=== PATIENT | male | born 1980 | race Hispanic/Latino ===

== ENCOUNTER 2023-09-16 21:33 | Inpatient (IN) | payer OTHER ==
[2023-09-16 22:10] LABS: BASOPHILS # (AUTO) 0.08 K/uL (0.00-0.20); BASOPHILS % (AUTO) 0.5 % (0.0-5.0); EOSINOPHILS # (AUTO) 0.02 K/uL (0.00-0.70); EOSINOPHILS % (AUTO) 0.1 % (0.0-8.0); HEMATOCRIT 53.5 % (42-54); IMMATURE GRANULOCYTE ABSOLUTE 0.12 K/uL (0-1); LYMPHOCYTES # (AUTO) 1.3 K/uL (1.0-4.8); LYMPHOCYTES % (AUTO) 8.6 % (21.0-51.0); MEAN CORPUSCULAR HEMOGLOBIN 31.6 pg (27.0-33.0); MEAN CORPUSCULAR HGB CONC 33.1 g/dL (32.0-36.0); MEAN CORPUSCULAR VOLUME 95.4 fL (79-99); MONOCYTES % (AUTO) 6.9 % (3.0-13.0); NEUTROPHILS # (AUTO) 12.4 K/uL (1.8-7.7); NEUTROPHILS % (AUTO) 83.1 % (40.0-77.0); PLATELET COUNT (AUTO) 320 K/uL (130-400); RED BLOOD CELL COUNT(AUTO) 5.61 MIL/uL (4.50-6.20)
[2023-09-16] MEDS: PANTOPRAZOLE 40 MG/VIAL IVP ONE ×2 (22:14→22:30)
[2023-09-16 22:29] LABS: ALBUMIN 3.9 g/dL (3.5-5.0); BILIRUBIN,TOTAL 0.5 mg/dL (0.2-1.0); POTASSIUM 3.8 mmol/L (3.5-5.1)
[2023-09-16] MEDS: LACTATED RINGERS 1000ML 1,000 ML IV ONE (22:30)
[2023-09-16] MEDS: LIDOCAINE HCL 2% VISCOUS 15 ML UDCUP PO ONE (22:30)
[2023-09-16] MEDS: ONDANSETRON 4MG INJ IVP ONE (22:30)
[2023-09-16] MEDS: MAG/ALUM/SIMETH 30 ML UDCUP PO ONE (22:30)
[2023-09-16 23:11] LABS: WBC MORPHOLOGY CONSISTENT W/DIFF
[2023-09-17] VITALS (81 sets, daily range): BP systolic 90–126; BP diastolic 45–78; PULSE 84–103; RESP 10–47; O2SAT 100
[2023-09-17 00:18] LABS: ABG HCO3 4.8 mmol/L (21.0-28.0); ABG OXYGEN SATURATION 97.6 % (95.0-99.0); ABG PCO2 < 15 mmHg (35-48); ABG PH 7.129 (7.35-7.450); DEVICE COMMENT RR RN; VENT MODE, BG RA (ROOM AIR)
[2023-09-17 00:55] LABS: AMPHET/METH SCREEN,URINE NEGATIVE (NEGATIVE); BARBITURATE SCREEN, URINE NEGATIVE (NEGATIVE); BENZODIAZEPINES SCREEN,URINE NEGATIVE (NEGATIVE); CANNABINOID SCREEN,URINE NEGATIVE (NEGATIVE); COCAINE SCREEN,URINE POSITIVE (NEGATIVE); OPIATE SCREEN,URINE NEGATIVE (NEGATIVE); PHENCYCLIDINE SCREEN,URINE NEGATIVE (NEGATIVE)
[2023-09-17 01:00] LABS: POTASSIUM 4.2 mmol/L (3.5-5.1)
[2023-09-17] MEDS ORDERED: MAGNESIUM 2GM PREMIX 50ML 50 ML IV SCH (01:00)
[2023-09-17] MEDS ORDERED: POTASSIUM CHLORIDE 10MEQ/100ML 100 ML IV PRN (01:00)
[2023-09-17] MEDS: INSULIN HUMULIN R 100 UNIT/ML 3ML SQ SCH (01:13)
[2023-09-17] MEDS: INSULIN REGULAR, HUMAN 3ML 100 UNIT in 0.9%NACL 100ML 100 ML IV SCH ×2 (01:52→14:58)
[2023-09-17] MEDS: D5W-1/2 NS/20MEQ KCL 1,000 ML IV SCH ×2 (01:53→22:06)
[2023-09-17] MEDS: INSULIN HUMULIN R 100 UNIT/ML 3ML ONE (02:21)
[2023-09-17] MEDS ORDERED: ACETAMINOPHEN 325 MG TAB PO PRN ×2 (02:30)
[2023-09-17] MEDS ORDERED: ONDANSETRON 4MG INJ IVP PRN (02:30)
[2023-09-17] MEDS: MORPHINE 2 MG SYG IVP PRN (03:03)
[2023-09-17] MEDS: NS-20 MEQ KCL 1000ML 1,000 ML IV ONE (03:47)
[2023-09-17] MEDS: 0.9%NACL 1000ML 1,000 ML IV SCH (04:00)
[2023-09-17 05:18] LABS: CREATININE 0.9 mg/dL (0.5-1.3); POTASSIUM 4.6 mmol/L (3.5-5.1)
[2023-09-17 05:39] LABS: APPEARANCE,URINE CLEAR (CLEAR); BACTERIA,URINE RARE /HPF (None Seen); BILIRUBIN,URINE NEGATIVE (NEGATIVE); COLOR,URINE COLORLESS (YELLOW); GLUCOSE, URINE (UA) >=1000 mg/dL (NEGATIVE); KETONES,URINE 150 mg/dL (NEGATIVE); LEUKOCYTE ESTERASE ,URINE NEGATIVE Leu/uL (NEGATIVE); MUCUS,URINE RARE LPF (None Seen); NITRATE,URINE NEGATIVE (NEGATIVE); OCCULT BLOOD,URINE SMALL (NEGATIVE); PH,URINE 5.5 (5.0-8.0); PROTEIN,URINE 70 mg/dL (NEGATIVE); SQUAMOUS EPITHELIAL CELL,UR RARE /HPF (0-2); UROBILINOGEN,URINE 0.2 mg/dL (0.2-1.0); YEAST,URINE BUDDING RARE /HPF (None Seen)
[2023-09-17] MEDS ORDERED: INSULIN GLARGINE 100 UNITS/ML 10 ML VIAL SQ SCH (07:30)
[2023-09-17] MEDS ORDERED: 0.9%NACL 50ML IV SCH (10:00)
[2023-09-17] MEDS ORDERED: ZOSYN 3.375GM +NS 50ML IVPB SCH (10:00)
[2023-09-17 10:05] LABS: CREATININE 0.9 mg/dL (0.5-1.3); POTASSIUM 3.5 mmol/L (3.5-5.1)
[2023-09-17] MEDS: CEFTRIAXONE 2GM VIAL IVPB SCH (10:37)
[2023-09-17 15:21] LABS: CREATININE 0.9 mg/dL (0.5-1.3)
[2023-09-17 15:31] LABS: POTASSIUM 2.7 mmol/L (3.5-5.1)
[2023-09-17] MEDS ORDERED: POTASSIUM CHLORIDE 10% ELIXIR 20 MEQ/15 ML UDCUP PO PRN (16:00)
[2023-09-17] MEDS ORDERED: LIRA0.6P SQ (16:09)
[2023-09-17] MEDS ORDERED: NPH,100V11 SQ (16:09)
[2023-09-17] MEDS: POTASSIUM CHLORIDE 10MEQ/100ML 100 ML IV PRN (16:14)
[2023-09-17] MEDS: POTASSIUM CHLORIDE 10% ELIXIR 20 MEQ/15 ML UDCUP ONE (16:21)
[2023-09-17] MEDS: KCL 20 MEQ ERTAB PO PRN (18:19)
[2023-09-17 18:49] LABS: CREATININE 0.8 mg/dL (0.5-1.3); MAGNESIUM 1.7 mg/dL (1.80-2.40); POTASSIUM 3.1 mmol/L (3.5-5.1)
[2023-09-17] MEDS: MAGNESIUM 2GM PREMIX 50ML 50 ML IV SCH (19:19)
[2023-09-17] MEDS: ENOXAPARIN SODIUM 40 MG/0.4 ML SYRINGE SQ SCH (21:07)
[2023-09-17 23:10] LABS: CREATININE 0.9 mg/dL (0.5-1.3); MAGNESIUM 2.1 mg/dL (1.80-2.40); POTASSIUM 3.7 mmol/L (3.5-5.1)
[2023-09-17] MEDS: INSULIN GLARGINE 100 UNITS/ML 10 ML VIAL SQ SCH (23:51)
[2023-09-18] VITALS (28 sets, daily range): BP systolic 100–124; BP diastolic 50–78; PULSE 72–90; RESP 10–20; O2SAT 100
[2023-09-18 04:09] LABS: BASOPHILS # (AUTO) 0.02 K/uL (0.00-0.20); BASOPHILS % (AUTO) 0.3 % (0.0-5.0); EOSINOPHILS # (AUTO) 0.12 K/uL (0.00-0.70); EOSINOPHILS % (AUTO) 2.1 % (0.0-8.0); HEMATOCRIT 41.6 % (42-54); IMMATURE GRANULOCYTE ABSOLUTE 0.04 K/uL (0-1); LYMPHOCYTES # (AUTO) 1.9 K/uL (1.0-4.8); LYMPHOCYTES % (AUTO) 32.5 % (21.0-51.0); MEAN CORPUSCULAR HEMOGLOBIN 31.4 pg (27.0-33.0); MEAN CORPUSCULAR HGB CONC 34.6 g/dL (32.0-36.0); MEAN CORPUSCULAR VOLUME 90.6 fL (79-99); MONOCYTES # (AUTO) 0.7 K/uL (0.1-1.0); MONOCYTES % (AUTO) 11.5 % (3.0-13.0); NEUTROPHILS # (AUTO) 3.1 K/uL (1.8-7.7); NEUTROPHILS % (AUTO) 52.9 % (40.0-77.0); PLATELET COUNT (AUTO) 222 K/uL (130-400); RED BLOOD CELL COUNT(AUTO) 4.59 MIL/uL (4.50-6.20); WHITE BLOOD COUNT (AUTO) 5.9 K/uL (4.8-10.8)
[2023-09-18 04:17] LABS: CREATININE 0.6 mg/dL (0.5-1.3); MAGNESIUM 1.9 mg/dL (1.80-2.40)
[2023-09-18] MEDS: 0.9%NACL 1000ML 1,000 ML IV SCH (05:55)
[2023-09-18] MEDS: INSULIN HUMULIN R 100 UNIT/ML 3ML SQ SCH ×2 (08:41→11:48)
[2023-09-18] MEDS: POLYETHYLENE GLYCOL 3350 17 GM POWD.PACK PO SCH (08:48)
[2023-09-18] MEDS: PANTOPRAZOLE 40 MG/VIAL IVP SCH (08:48)
[2023-09-18] MEDS: INSULIN GLARGINE 100 UNITS/ML 10 ML VIAL SQ SCH (23:08)
[2023-09-19] VITALS: BP 102/54; PULSE 92; RESP 16
[2023-09-19 04:00] VITALS: BP 123/46; PULSE 85; RESP 17
[2023-09-19 04:23] LABS: BASOPHILS # (AUTO) 0.04 K/uL (0.00-0.20); BASOPHILS % (AUTO) 0.7 % (0.0-5.0); EOSINOPHILS # (AUTO) 0.17 K/uL (0.00-0.70); EOSINOPHILS % (AUTO) 3.1 % (0.0-8.0); HEMATOCRIT 38.5 % (42-54); IMMATURE GRANULOCYTE ABSOLUTE 0.03 K/uL (0-1); LYMPHOCYTES # (AUTO) 2.1 K/uL (1.0-4.8); LYMPHOCYTES % (AUTO) 37.8 % (21.0-51.0); MEAN CORPUSCULAR HEMOGLOBIN 31.8 pg (27.0-33.0); MEAN CORPUSCULAR HGB CONC 35.1 g/dL (32.0-36.0); MEAN CORPUSCULAR VOLUME 90.6 fL (79-99); MONOCYTES # (AUTO) 0.5 K/uL (0.1-1.0); MONOCYTES % (AUTO) 9.9 % (3.0-13.0); NEUTROPHILS # (AUTO) 2.6 K/uL (1.8-7.7); NEUTROPHILS % (AUTO) 47.9 % (40.0-77.0); PLATELET COUNT (AUTO) 213 K/uL (130-400); RED BLOOD CELL COUNT(AUTO) 4.25 MIL/uL (4.50-6.20); RED CELL DISTRIBUTION WIDTH 12.8 % (11.0-15.5); WHITE BLOOD COUNT (AUTO) 5.5 K/uL (4.8-10.8)
[2023-09-19] MEDS: INSULIN HUMULIN R 100 UNIT/ML 3ML SQ SCH (06:10)
[2023-09-19 08:00] VITALS: BP 110/68; PULSE 82; RESP 16
[2023-09-19 11:13] VITALS: O2SAT 99
[2023-09-19 11:49] VITALS: BP 100/62; PULSE 81; RESP 16
[2023-09-19] MEDS ORDERED: NPH,100V11 SQ (14:25)
[2023-09-19] MEDS ORDERED: INSU100V12 SQ (14:25)
== END 2023-09-19 15:30 | disposition home or self-care (01) | DRG 638 ==
LOC: EDH 21:33 → EDHIP 21:34 → 2BH 09-17 06:10 → 4CH 09-18 16:55
PROVIDERS: ADMIT Hospitalist; ATTEND Hospitalist
DX: E11.10 Type 2 diabetes mellitus with ketoacidosis without coma (principal); E87.1 Hypo-osmolality and hyponatremia; N30.00 Acute cystitis without hematuria; F14.10 Cocaine abuse, uncomplicated; F17.200 Nicotine dependence, unspecified, uncomplicated; K59.00 Constipation, unspecified; Z59.7 Insufficient social insurance and welfare support; Z80.3 Family history of malignant neoplasm of breast; Z83.3 Family history of diabetes mellitus; Z91.148 Patient's other noncompliance with medication regimen for other reason; Z91.199 Patient's noncompliance with other medical treatment and regimen due to unspecified reason
CPT/HCPCS: 36415; 36600; 71045; 74018; 80048; 80053; 80305; 81001; 82010; 82550; 82803; 82948; 83036; 83690; 83735; 84484; 85025; 87040; 87088; 87486; 87797; 93005; 96374; 96375; 99291; C9113; G0378; J0696; J1650; J1815; J2270; J2405; J3475; J3480; J7120